=== PATIENT | male | born 1980 | race African-American/Black ===

== ENCOUNTER 2018-05-18 17:11 | Emergency (ER) | payer MEDICAID ==
[~2018-05-18] VITALS: Ht 180.3 cm; Wt 119.0 kg
[~2018-05-18 17:11] MED LIST: AMLO10TA PO; CLON-371 PO; LURA20TA PO
[2018-05-18] MEDS ORDERED: LIDOcaine 1% 30ml preserv. free vial IJ ONE (17:35)
[2018-05-18] MEDS ORDERED: SULF1TAB49 PO (17:40)
[2018-05-18 18:24] VITALS: BP 165/89
== END 2018-05-18 18:25 | disposition home or self-care (01) ==
LOC: ER 17:12
DX: L02.411 Cutaneous abscess of right axilla (principal); I10 Essential (primary) hypertension; Z88.0 Allergy status to penicillin; Z79.899 Other long term (current) drug therapy
CPT/HCPCS: 10060; 99283; A6266; A6449; J3490

== ENCOUNTER 2018-05-20 13:14 | Emergency (ER) | payer MEDICAID ==
[~2018-05-20] VITALS: Ht 180.3 cm; Wt 120.5 kg
[~2018-05-20 13:14] MED LIST changes: +SULF1TAB49 PO
[2018-05-20 13:18] VITALS: BP 150/111
== END 2018-05-20 14:26 | disposition home or self-care (01) ==
LOC: ER 13:15
DX: L02.411 Cutaneous abscess of right axilla (principal); I10 Essential (primary) hypertension; Z88.0 Allergy status to penicillin; Z79.899 Other long term (current) drug therapy
CPT/HCPCS: 99282; A6255